=== PATIENT | male | born 1965 | race African-American/Black ===

== ENCOUNTER → 2016-07-16 | Outpatient (CLI) | payer BC ==
[~2016-07-16] MED LIST: AMLODIPINE BESY10 MG PO; CHANTIX1 EACH PO; HYDROCODON-ACE1 EACH PO; LISINOPRIL10 MG PO; METOPROLOL ER PO; NEXIUM PO; PREDNISONE10 M1
--- NOTE | ~2016-07-16 | EKG ---
PATIENT: VICKY WELLS UNIT #: [id number] Ventricular Rate: 70 BPM Atrial Rate: 70 BPM P-R Interval: 190 ms QRS Duration: 94 ms Q-T Interval: 382 ms QTC Calculation(Bezet): 412 ms P Woodworth: 29 degrees Calculated R Woodworth: 22 degrees Calculated T Woodworth: -17 degrees Diagnosis Line: Normal sinus rhythm Diagnosis Line: Moderate voltage criteria for LVH, may be normal Diagnosis Line: variant Diagnosis Line: ST elevation, consider early repolarization, Diagnosis Line: pericarditis, or injury Diagnosis Line: T wave abnormality, consider inferior ischemia Diagnosis Line: Abnormal ECG Diagnosis Line: No previous ECGs available Diagnosis Line: Confirmed by IVANIA OLIVARES MD ([id number]) on 07/17/2016 Diagnosis Line: 8:01:32 PM INTERPRETING MD: ELISE MILAN
== END | disposition home or self-care (01) ==
LOC: CAMB 10:42
DX: Z01.810 Encounter for preprocedural cardiovascular examination (principal); K43.9 Ventral hernia without obstruction or gangrene
CPT/HCPCS: 93005

== ENCOUNTER → 2016-07-20 | Day surgery (SDC) | payer BC, OTHER ==
--- NOTE | ~2016-07-20 | OR ---
Unit #: [id number] #: [id number] Patient: VICKY WELLS [id number] [address] [place], [place] [address] [id number] MR#: [id number] NAME: VICKY WELLS ROOM: Date of Procedure: 07/20/2016 Admission Date: 07/20/2016 Surgeon: Alon Penaloza M.D. : 1965 Attending Physician: Alon Penaloza M.D. Primary Care Physician: Ck Avendaño M.D. OPERATIVE REPORT PREOPERATIVE DIAGNOSIS Incarcerated incisional hernia. POSTOPERATIVE DIAGNOSIS 3 cm incarcerated incisional hernia. PROCEDURE PERFORMED Laparoscopic ventral hernia repair of incarcerated incisional hernia with 6 inch Ventralight mesh. 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 ANESTHESIA General endotracheal anesthesia. ESTIMATED BLOOD LOSS Minimal. IV FLUIDS 800 crystalloid. COMPLICATIONS None. INDICATIONS FOR PROCEDURE The patient is a 51-year-old with chronic incarcerated ventral incisional hernia. DESCRIPTION OF PROCEDURE The patient was taken to the operating theater and placed in supine position. General anesthesia was induced. The abdomen was prepped and draped. A 5-mm Optiview trocar was placed in the left upper quadrant without difficulty. The abdomen was insufflated to 15 mmHg with CO2. Under direct vision, I placed a left lower quadrant 10 mm port. The patient was found to have an incarcerated incisional hernia 3 cm. This was reduced with gentle traction. I then placed a 6-inch Ventralight circular mesh into position. This was held in place with single-stranded Vicryl sutures and delivered transcutaneously. I then secured this with a SorbaFix Tacker in circumferential pattern. This covered the defect by at least 5 cm in all circumference. Hemostasis was adequate. I removed the ports under direct vision, cut the sutures at the skin level and closed Unit #: [id number] #: [id number] Patient: VICKY WELLS with 4-0 Vicryl. The patient tolerated the procedure well and sent to recovery room in good condition. Dictated by... Marivel Flowers/wild TD: 07/21/2016 02:01 JOB #: [id number] OPERATIVE REPORT Page 1 of 1 X Alon Penaloza MD PROCEDURE OPERATIVE NOTE
== END | disposition home or self-care (01) ==
LOC: CSUR 09:50
DX: K43.0 Incisional hernia with obstruction, without gangrene (principal); I10 Essential (primary) hypertension; K21.9 Gastro-esophageal reflux disease without esophagitis; F17.210 Nicotine dependence, cigarettes, uncomplicated; Z79.899 Other long term (current) drug therapy; Z90.49 Acquired absence of other specified parts of digestive tract
CPT/HCPCS: C1781; J0330; J0690; J1100; J1644; J2250; J2405; J3010